=== PATIENT | male | born 1940 | race Caucasian/White ===

== ENCOUNTER 2017-05-02 09:35 | Day surgery (SDCO) | payer OTHER ==
[2017-05-02 10:54] LABS: BILIRUBIN NEGATIVE (NEGATIVE); BLOOD NEGATIVE Ery/uL (NEGATIVE); CLARITY CLEAR (CLEAR); COLOR YELLOW (YELLOW); GLUCOSE (U) NORMAL (NORMAL); KETONE (U) TRACE mg/dL (NEGATIVE); LEUKOCYTES NEGATIVE Leu/uL (NEGATIVE); NITRITE NEGATIVE (NEGATIVE); PROTEIN NEGATIVE (NEGATIVE); SPECIFIC GRAVITY >=1.030 (1.001-1.030); pH 6.5 (5.0-9.0)
[2017-05-02 10:54] LABS: BASOPHIL 0.2 % (0-2); EOSINOPHIL 2.2 % (0-7); HCT 41.2 % (42.0-52.0); HGB 13.3 g/dl (13.2-18.0); LYMPHOCYTE 21.8 % (15-48); MCH 31.1 pg (25.0-31.0); MCHC 32.3 g/dL (32.0-36.0); MCV 96.5 fL (78.0-100.0); MONOCYTE 10.1 % (0-12); MPV 10.3 fL (6.0-9.5); NEUTROPHIL 65.7 % (41-80); PLT 216 K/uL (150-400); RBC 4.27 M/uL (4.70-6.00); RDW 13.3 % (11.5-14.0); WBC 6.5 K/uL (4.0-10.5)
[2017-05-02 11:09] LABS: ALBUMIN 3.8 g/dL (3.4-4.8); BILIRUBIN - TOTAL 0.8 mg/dL (0.1-1.0); CREATININE 0.7 mg/dL (0.7-1.2); GLOBULIN (CALCULATION) 3.4 g/dL (2.2-4.2); POTASSIUM 4.1 mmol/L (3.5-5.1); TOTAL PROTEIN 7.2 g/dL (6.4-8.3)
[2017-05-02 11:10] LABS: LACTIC ACID 0.9 mmol/L (0.5-2.2)
[2017-05-02 11:16] LABS: TOTAL T4 9.29 ug/dL (5.1-14.1); TSH (THYROID STIM HORMONE) 0.804 uIU/mL (0.270-4.200)
[2017-05-03 04:44] LABS: HCT 39.3 % (42.0-52.0); HGB 12.8 g/dl (13.2-18.0); MCH 31.1 pg (25.0-31.0); MCHC 32.6 g/dL (32.0-36.0); MCV 95.4 fL (78.0-100.0); MPV 10.3 fL (6.0-9.5); RBC 4.12 M/uL (4.70-6.00); RDW 13.1 % (11.5-14.0); WBC 6.3 K/uL (4.0-10.5)
[2017-05-03 05:00] LABS: CREATININE 0.7 mg/dL (0.7-1.2)
[2017-05-03 05:19] LABS: FOLIC ACID (SERUM) 17.1 ng/mL (5.6-45.8)
[2017-05-03] MEDS ORDERED: CIPRO500 MG PO (14:47)
[2017-05-03] MEDS ORDERED: MELATONIN3 MG PO (14:48)
[2017-05-03] MEDS ORDERED: INDERAL LA80 MG PO (14:48)
[2017-05-03] MEDS ORDERED: AMANTADINE100 MG PO (14:48)
[2017-05-03] MEDS ORDERED: SYNTHROID125 MCG PO (14:48)
[2017-05-03] MEDS ORDERED: CARBIDOPA-LEVO1 EAC4 PO (14:48)
[2017-05-03] MEDS ORDERED: COLACE100 MG PO (14:49)
[2017-05-03] MEDS ORDERED: CERTAGEN1 EACH PO (14:49)
--- NOTE | 2017-05-03 17:47 | NUR ---
REVIEWED DISCHARGE EDUCATION, MEDICATION AND APPT INFORMATION WITH PT SIGNIFICANT OTHER
== END 2017-05-03 16:19 | disposition home or self-care (01) ==
LOC: FER 09:35 → FMS 13:10
PROVIDERS: Emergency Medicine; ADMIT Internal Medicine
DX: G20 Parkinson's disease (principal); N39.0 Urinary tract infection, site not specified; E03.9 Hypothyroidism, unspecified; Z87.891 Personal history of nicotine dependence; Z82.49 Family history of ischemic heart disease and other diseases of the circulatory system; Z79.2 Long term (current) use of antibiotics; Z79.899 Other long term (current) drug therapy; Z98.890 Other specified postprocedural states
CPT/HCPCS: 36415; 70450; 71010; 80048; 80053; 81003; 82150; 82607; 82746; 83605; 83690; 84436; 84443; 84484; 85025; 86780; 93005; G0378